=== PATIENT | female | born 1950 | race Native Hawaiian/Other Pacific Islander ===

== ENCOUNTER 2017-01-14 14:15 | Outpatient (CLI) | payer OTHER, MEDICARE | END 2017-01-14 21:03 | disposition home or self-care (01) | LOC: MRI 14:15 | DX: M47.812 Spondylosis without myelopathy or radiculopathy, cervical region (principal) | CPT/HCPCS: 36415; 82565; 84520; A9576 ==

== ENCOUNTER 2017-03-11 10:15 | Outpatient (CLI) | payer OTHER, MEDICARE ==
[2017-03-11 10:36] LABS: PLATELET COUNT 280 K/uL (152-353)
[2017-03-11 11:09] LABS: POTASSIUM 3.8 mmol/L (3.6-5.2)
== END 2017-03-11 19:40 | disposition home or self-care (01) ==
LOC: LABW 10:15
PROVIDERS: Nurse Practitioner Family
DX: Z79.891 Long term (current) use of opiate analgesic (principal); M54.12 Radiculopathy, cervical region; I10 Essential (primary) hypertension; G40.802 Other epilepsy, not intractable, without status epilepticus
CPT/HCPCS: 36415; 80053; 82248; 84443; 85027

== ENCOUNTER 2017-11-18 09:19 | Outpatient (CLI) | payer OTHER, MEDICARE | END 2017-11-18 23:56 | disposition home or self-care (01) | LOC: MAMMO 09:19 | DX: Z12.31 Encounter for screening mammogram for malignant neoplasm of breast (principal) ==

== ENCOUNTER 2017-12-17 10:07 | Outpatient (CLI) | payer OTHER, MEDICARE | END 2017-12-17 22:59 | disposition home or self-care (01) | LOC: LABW 10:07 | DX: G40.A09 Absence epileptic syndrome, not intractable, without status epilepticus (principal) | CPT/HCPCS: 36415; 82542 ==

== ENCOUNTER 2018-01-24 08:48 | Outpatient (CLI) | payer OTHER, MEDICARE | END 2018-01-24 20:43 | disposition home or self-care (01) | LOC: LABW 08:48 | DX: G40.A09 Absence epileptic syndrome, not intractable, without status epilepticus (principal); G43.009 Migraine without aura, not intractable, without status migrainosus | CPT/HCPCS: 36415; 82542 ==

== ENCOUNTER 2018-05-11 09:32 | Outpatient (CLI) | payer OTHER, MEDICARE ==
[2018-05-11 10:00] LABS: PLATELET COUNT 254 K/uL (152-353)
[2018-05-11 10:06] LABS: POTASSIUM 3.5 mmol/L (3.6-5.2)
== END 2018-05-11 23:59 | disposition home or self-care (01) ==
LOC: LABW 09:32
PROVIDERS: Podiatrist
DX: Z01.810 Encounter for preprocedural cardiovascular examination (principal); Z01.811 Encounter for preprocedural respiratory examination; Z01.812 Encounter for preprocedural laboratory examination
CPT/HCPCS: 36415; 80053; 85027; 93005

== ENCOUNTER 2019-04-13 11:10 | Outpatient (CLI) | payer OTHER, MEDICARE | END 2019-04-13 23:05 | disposition home or self-care (01) | LOC: MAMMO 11:10 | DX: Z12.31 Encounter for screening mammogram for malignant neoplasm of breast (principal) ==

== ENCOUNTER 2019-05-21 15:56 | Outpatient (CLI) | payer OTHER, MEDICARE | END 2019-05-21 23:59 | disposition home or self-care (01) | LOC: RAD 15:56 | DX: R51 Headache (principal); W18.39XA Other fall on same level, initial encounter; Y93.89 Activity, other specified; Y92.018 Other place in single-family (private) house as the place of occurrence of the external cause ==

== ENCOUNTER 2020-05-29 12:43 | Outpatient (CLI) | payer OTHER, MEDICARE | END 2020-05-30 00:02 | disposition home or self-care (01) | LOC: MAMMO 12:43 | DX: Z12.31 Encounter for screening mammogram for malignant neoplasm of breast (principal) ==

== ENCOUNTER 2021-05-09 08:37 | Outpatient (CLI) | payer OTHER, MEDICARE ==
[2021-05-09 08:56] LABS: PLATELET COUNT 266 K/uL (152-353)
[2021-05-10 21:36] LABS: LDL CHOLESTEROL 74.9 mg/dL (0-99*)
== END 2021-05-09 23:04 | disposition home or self-care (01) ==
LOC: LABW 08:37
PROVIDERS: ATTEND Internal Medicine
DX: I10 Essential (primary) hypertension (principal); F32.9 Major depressive disorder, single episode, unspecified; R56.9 Unspecified convulsions
CPT/HCPCS: 36415; 80053; 80061; 81000; 82542; 84439; 84443; 85027

== ENCOUNTER 2021-05-26 10:16 | Outpatient (CLI) | payer OTHER, MEDICARE | END 2021-05-26 21:14 | disposition home or self-care (01) | LOC: US 10:16 | PROVIDERS: ATTEND Internal Medicine | DX: R79.89 Other specified abnormal findings of blood chemistry (principal) ==

== ENCOUNTER 2022-05-15 10:45 | Outpatient (CLI) | payer OTHER, MEDICARE | END 2022-05-15 19:08 | disposition home or self-care (01) | LOC: US 10:45 | PROVIDERS: ATTEND Internal Medicine Endocrinology, Diabetes & Metabolism | DX: E04.2 Nontoxic multinodular goiter (principal) ==

== ENCOUNTER 2022-07-02 14:49 | Outpatient (CLI) | payer OTHER, MEDICARE | END 2022-07-02 19:17 | disposition home or self-care (01) | LOC: RAD 14:49 | PROVIDERS: ATTEND Internal Medicine | DX: S39.012A Strain of muscle, fascia and tendon of lower back, initial encounter (principal); Y92.89 Other specified places as the place of occurrence of the external cause ==

== ENCOUNTER → 2022-07-28 | Outpatient (CLI) | payer OTHER, MEDICARE | LOC: MAMMO 07-16 13:00 | PROVIDERS: ATTEND Internal Medicine | DX: Z12.31 Encounter for screening mammogram for malignant neoplasm of breast (principal); Z78.0 Asymptomatic menopausal state ==

== ENCOUNTER 2022-12-29 13:23 | Outpatient (CLI) | payer OTHER, MEDICARE | END 2022-12-29 22:23 | disposition home or self-care (01) | LOC: MRI 13:23 | PROVIDERS: ATTEND Physician Assistant | DX: M25.512 Pain in left shoulder (principal); S46.012A Strain of muscle(s) and tendon(s) of the rotator cuff of left shoulder, initial encounter; M75.42 Impingement syndrome of left shoulder; Y92.89 Other specified places as the place of occurrence of the external cause ==

== ENCOUNTER 2023-04-22 13:38 | Outpatient (CLI) | payer OTHER, MEDICARE ==
[2023-04-22 14:04] LABS: PLATELET COUNT 266 K/uL (152-353)
[2023-04-22 14:25] LABS: POTASSIUM 4.2 mmol/L (3.6-5.2)
== END 2023-04-22 20:56 | disposition home or self-care (01) ==
LOC: LAB 13:38
PROVIDERS: ATTEND Internal Medicine
DX: I10 Essential (primary) hypertension (principal); R56.9 Unspecified convulsions
CPT/HCPCS: 80053; 80061; 82542; 84439; 84443; 85027